=== PATIENT | male | born 1960 | race Caucasian/White ===

== ENCOUNTER 2023-06-11 11:13 | Outpatient (OUT) | payer MEDICARE, SELFPAY | END 2023-06-11 11:14 | disposition home or self-care (01) | LOC: PST 11:14 | PROVIDERS: Visit Provider Orthopaedic Surgery | DX: Z01.818 Encounter for other preprocedural examination (principal); R22.32 Localized swelling, mass and lump, left upper limb ==

== ENCOUNTER 2023-06-18 12:06 | Day surgery (SDC) | payer MEDICARE, SELFPAY ==
[2023-06-18 12:33] VITALS: BP 130/81; PULSE 85; O2SAT 95; BMI 29.8
[2023-06-18] MEDS: CEFAZOLIN SODIUM/DEXTROSE,ISO 2 GM/50 ML PIGGYBACK IV (13:07)
[2023-06-18] MEDS: BUPIVACAINE HCL 0.5% PF 50 MG/10 ML VIAL 5 ML INJ (13:30)
[2023-06-18] MEDS: LIDOCAINE HCL 1% 100 MG/10 ML MDV 5 ML INJ (13:30)
--- NOTE | 2023-06-18 14:22 | PM.ORPRC ---
Procedure Note Date of procedure: 06/18/23 Pre-op diagnosis: Left index finger mass Post-op diagnosis: same as pre-op Procedure: Procedures: Left index finger mass excision Operative procedure: After informed consent was obtained the patient was brought to the operating room. A digital block was performed with 4 mL 1% lidocaine plain combined with 4 mL 0.5% Marcaine plain. The left hand was prepped and draped in the usual sterile fashion. A Davina drain was placed for a turnicot. An incision over the mid axial line ulnarly. This is over the middle phalanx of the index finger from PIP to DIP joint. Dissection was performed with tenotomy's and with this yellow fluid was expressed consistent with an inclusion cyst. The cyst was bluntly dissected from surrounding soft tissue without difficulty and sent for pathology. The wound was irrigated. Small amount of skin was removed due to the amount of redundant skin. The finger turnicot was removed. Irrigation was performed and the wound was closed with nylon suture. Sterile dressing was placed. Patient was brought to the recovery room in stable condition. There were no intraoperative or immediate postoperative complications. Anesthesia: local Surgeon: Andrzej Benitez Estimated blood loss (mL): 1 Pathology: other (Left index finger mass) Condition: stable Disposition: PACU
== END 2023-06-18 14:25 | disposition home or self-care (01) ==
PROVIDERS: Visit Provider Orthopaedic Surgery
PROC: (CPT 26113; principal; 2023-06-18 13:10)
DX: L72.0 Epidermal cyst (principal); F17.210 Nicotine dependence, cigarettes, uncomplicated; G47.30 Sleep apnea, unspecified
CPT/HCPCS: 26113; 88304; 99999